=== PATIENT | female | born 1965 | race Caucasian/White ===

== ENCOUNTER 2018-08-27 00:55 | Inpatient (IN) | payer SELFPAY ==
[~2018-08-27] VITALS: Ht 167.6 cm; Wt 67.1 kg
[2018-08-27] VITALS (63 sets, daily range): BP systolic 92–154; BP diastolic 57–98
[2018-08-27] MEDS ORDERED: ONDANSETRON HCL 4MG/2ML INJ IV STA (00:58)
[2018-08-27] MEDS ORDERED: SODIUM CHLORIDE 0.9% 1,000 ML IV ONE (00:58)
[2018-08-27] MEDS ORDERED: SUCCINYLCHOLINE CHLORIDE 200MG/10ML IV ONE ×2 (01:00→14:50)
[2018-08-27] MEDS ORDERED: ETOMIDATE 2MG/ML 10ML VIAL IV ONE ×2 (01:00→14:50)
[2018-08-27] MEDS ORDERED: PROPOFOL 10MG/ML 100ML 100 ML IV ONE (01:00)
[2018-08-27 01:29] LABS: BG CARBOXYHEMOGLOBIN 1.3 % (0.5-1.5); BG DEOXYHEMOGLOBIN 0.9 % (0.0-5.0); BG FRACTION INSPIRED OXYGEN 40; BG HCO3 ACT 25.6 mmol/L (22.0-26.0); BG METHEMOGLOBIN 0.4 % (0.0-1.5); BG OXYGEN SATURATION 99.1 % (92.0-98.5); BG OXYHEMOGLOBIN 97.4 % (94.0-97.0); BG PCO2 49.7 mmHg (35.0-45.0); BG PH 7.329 (7.350-7.450); BG PO2 239.4 mmHg (75.0-100.0); BG SAMPLE SITE RIGHT BRACHIAL; BG TIDAL VOLUME(mL) 500 mL; BG TOTAL HEMOGLOBIN 14.4 g/dL (12.0-18.0); BG VENT MODE VENT - A/C; BG VENT RATE 14 set
[2018-08-27] MEDS ORDERED: PROPOFOL 10MG/ML 100ML 100 ML IV PRN (01:45)
[2018-08-27] MEDS ORDERED: MIDAZOLAM HCL 50 MG in DEXTROSE 5% WATER 40 ML IV ONE (02:30)
[2018-08-27 02:35] LABS: CHLORIDE 109 mEq/L (98-107)
[2018-08-27 02:36] LABS: BASOPHILS % 0.8 % (0.0-2.0); EOSINOPHILS % 3.1 % (0.0-5.0); HEMATOCRIT. 41.2 % (36.0-48.0); HEMOGLOBIN. 13.8 g/dL (12.0-16.0); LYMPHOCYTES % 51.5 % (20.0-50.0); MEAN PLATELET VOLUME 7.1 fl (7.4-10.4); NEUTROPHILS % 34.6 % (40.0-76.0); PLATELET 257 x1000/uL (130-400); RED BLOOD CELL COUNT 4.43 mill/uL (4.2-5.4); RED CELL DISTRIBUTION WIDTH 12.7 % (11.6-14.6)
[2018-08-27 02:40] LABS: PROTHROMBIN TIME 10.3 sec (9.1-11.1)
[2018-08-27 02:45] LABS: ETHANOL BLOOD 211 mg/dL
[2018-08-27 02:47] LABS: CLARITY URINE CLEAR (CLEAR); COLOR URINE YELLOW (YELLOW); KETONES URINE NEGATIVE (NEGATIVE); LEUKOCYTE ESTERASE URINE NEGATIVE (NEGATIVE); NITRITE URINE NEGATIVE (NEGATIVE); OCCULT BLOOD URINE NEGATIVE (NEGATIVE); PROTEIN URINE NEGATIVE (NEGATIVE); SPECIFIC GRAVITY URINE 1.004 (1.005-1.030); UROBILINOGEN URINE 0.2 E.U./dL (0.2-1.0)
[2018-08-27 03:26] LABS: *AMPHETAMINES SCREEN URINE PRESUMTIVE POSITIVE (NEGATIVE); *BARBITURATES SCREEN URINE NEGATIVE (NEGATIVE); *BENZODIAZEPINES SCREEN URINE NEGATIVE (NEGATIVE); *COCAINE SCREEN URINE NEGATIVE (NEGATIVE)
[2018-08-27 03:27] LABS: CANNABINOID URINE SCREEN NEGATIVE (NEGATIVE); METHADONE URINE SCREEN NEGATIVE (NEGATIVE); OPIATES URINE SCREEN NEGATIVE (NEGATIVE); PHENCYCLIDINE URINE SCREEN NEGATIVE (NEGATIVE)
[2018-08-27] MEDS ORDERED: DOCUSATE SODIUM 100MG CAPSULE PO PRN (09:30)
[2018-08-27] MEDS ORDERED: NITROGLYCERIN 0.4MG TABLET SL SL PRN (09:30)
[2018-08-27] MEDS ORDERED: GUAIFENESIN 200MG/10ML SUGAR FREE UDC PO PRN (09:30)
[2018-08-27] MEDS ORDERED: IPRATROPIUM/ALBUTEROL 0.5-3(2.5)MG/3ML NEB INH PRN (09:30)
[2018-08-27] MEDS ORDERED: MAGNESIUM/ALUMINUM HYDROXIDE/SIMETHICONE 30ML UDC PO PRN (09:30)
[2018-08-27] MEDS ORDERED: DIPHENHYDRAMINE 50MG/ML VIAL IV PRN (09:30)
[2018-08-27] MEDS ORDERED: NA PHOS,M-B/NA PHOS,DI-BA ENEMA 118ML PR PRN (09:30)
[2018-08-27] MEDS ORDERED: ONDANSETRON HCL 4MG/2ML INJ IV PRN (09:30)
[2018-08-27] MEDS ORDERED: CLONIDINE 0.1MG TABLET PO PRN (09:30)
[2018-08-27] MEDS ORDERED: ACETAMINOPHEN 325MG TABLET PO PRN (09:30)
[2018-08-27] MEDS ORDERED: PIPERACILLIN/TAZ 3.375G PREMIX 50 ML IV SCH (10:00)
[2018-08-27] MEDS ORDERED: VANCOMYCIN 1250MG in DEXTROSE 5% WATER 250ML IV SCH (10:30)
[2018-08-27 11:08] LABS: BG BASE EXCESS -5.2 mmol/L (-2.0-2.0); BG CARBOXYHEMOGLOBIN 0.5 % (0.5-1.5); BG DEOXYHEMOGLOBIN 1.1 % (0.0-5.0); BG FRACTION INSPIRED OXYGEN 50; BG HCO3 ACT 20.1 mmol/L (22.0-26.0); BG METHEMOGLOBIN 0.3 % (0.0-1.5); BG OXYGEN SATURATION 98.9 % (92.0-98.5); BG OXYHEMOGLOBIN 98.1 % (94.0-97.0); BG PCO2 38.4 mmHg (35.0-45.0); BG PH 7.337 (7.350-7.450); BG PO2 175.9 mmHg (75.0-100.0); BG SAMPLE SITE RIGHT BRACHIAL; BG TIDAL VOLUME(mL) 500 mL; BG TOTAL HEMOGLOBIN 13.6 g/dL (12.0-18.0); BG VENT MODE VENT - A/C; BG VENT RATE 14 set
[2018-08-27] MEDS: PROPOFOL 10MG/ML 100ML 100 ML IV PRN ×3 (11:12→20:17)
[2018-08-27] MEDS: ENOXAPARIN 40MG/0.4ML SYR SUBCUT SCH (11:21)
[2018-08-27] MEDS: DEXT 5%/0.45% NACL 1000ML 1,000 ML IV SCH ×2 (11:21→19:50)
[2018-08-27] MEDS: PANTOPRAZOLE SODIUM 40 MG/VIAL IV SCH (11:22)
[2018-08-27] MEDS: MIDAZOLAM HCL 50 MG in DEXTROSE 5% WATER 40 ML IV PRN ×2 (11:25→19:49)
[2018-08-27] MEDS: IPRATROPIUM/ALBUTEROL 0.5-3(2.5)MG/3ML NEB HHN SCH ×2 (15:45→20:06)
[2018-08-27 16:55] LABS: CREATINE KINASE 192 IU/L (26-192)
[2018-08-27 16:56] LABS: CREATINE KINASE MB FRACTION 5.3 ng/mL (0.5-3.6)
[2018-08-27] MEDS: PIPERACILLIN/TAZ 3.375G PREMIX 50 ML IV SCH (20:20)
[2018-08-27] MEDS: VANCOMYCIN 1 G PREMIX 200 ML IV SCH (20:21)
[2018-08-27] MEDS ORDERED: NOREPINEPHRINE 4 MG in DEXT 5% WATER 246 ML IV PRN (20:30)
[2018-08-28] VITALS (49 sets, daily range): BP systolic 100–147; BP diastolic 58–91
[2018-08-28] MEDS: MIDAZOLAM HCL 50 MG in DEXTROSE 5% WATER 40 ML IV PRN ×2 (00:11→04:16)
[2018-08-28] MEDS: PROPOFOL 10MG/ML 100ML 100 ML IV PRN ×2 (00:15→05:51)
[2018-08-28] MEDS ORDERED: LORAZEPAM 2MG/ML CPJ IV PRN (00:15)
[2018-08-28] MEDS: IPRATROPIUM/ALBUTEROL 0.5-3(2.5)MG/3ML NEB HHN SCH ×7 (00:25→23:52)
[2018-08-28 02:00] LABS: CREATINE KINASE 1103 IU/L (26-192)
[2018-08-28] MEDS: PIPERACILLIN/TAZ 3.375G PREMIX 50 ML IV SCH ×3 (03:43→21:39)
[2018-08-28] MEDS: DEXT 5%/0.45% NACL 1000ML 1,000 ML IV SCH (05:30)
[2018-08-28] MEDS: PANTOPRAZOLE SODIUM 40 MG/VIAL IV SCH (09:00)
[2018-08-28] MEDS: VANCOMYCIN 1 G PREMIX 200 ML IV SCH ×2 (09:00→21:39)
[2018-08-28] MEDS: ENOXAPARIN 40MG/0.4ML SYR SUBCUT SCH (09:00)
[2018-08-28 10:20] LABS: BG CARBOXYHEMOGLOBIN 0.6 % (0.5-1.5); BG DEOXYHEMOGLOBIN 1.2 % (0.0-5.0); BG FRACTION INSPIRED OXYGEN 40; BG HCO3 ACT 26.5 mmol/L (22.0-26.0); BG METHEMOGLOBIN 0.4 % (0.0-1.5); BG OXYGEN SATURATION 98.8 % (92.0-98.5); BG OXYHEMOGLOBIN 97.8 % (94.0-97.0); BG PCO2 41.1 mmHg (35.0-45.0); BG PH 7.427 (7.350-7.450); BG PO2 148.9 mmHg (75.0-100.0); BG PRESSURE SUPPORT 12; BG SAMPLE SITE RIGHT BRACHIAL; BG TIDAL VOLUME(mL) 500 mL; BG TOTAL HEMOGLOBIN 14.3 g/dL (12.0-18.0); BG VENT MODE VENT - SIMV; BG VENT RATE 10 set
[2018-08-28 12:10] LABS: BG BASE EXCESS 2.5 mmol/L (-2.0-2.0); BG DEOXYHEMOGLOBIN 1.2 % (0.0-5.0); BG FRACTION INSPIRED OXYGEN 40; BG HCO3 ACT 27.3 mmol/L (22.0-26.0); BG METHEMOGLOBIN 0.4 % (0.0-1.5); BG OXYGEN SATURATION 98.8 % (92.0-98.5); BG OXYHEMOGLOBIN 97.4 % (94.0-97.0); BG PCO2 42.4 mmHg (35.0-45.0); BG PH 7.426 (7.350-7.450); BG PO2 143.5 mmHg (75.0-100.0); BG PRESSURE SUPPORT 8; BG SAMPLE SITE RIGHT RADIAL; BG TOTAL HEMOGLOBIN 14.5 g/dL (12.0-18.0); BG VENT MODE VENT - CPAP
[2018-08-28] MEDS: NEOMY SULF/BACITRAC ZN/POLY OINT 28GM TOP SCH (12:33)
[2018-08-29] VITALS (22 sets, daily range): BP systolic 87–123; BP diastolic 37–70
[2018-08-29] MEDS: DEXT 5%/0.45% NACL 1000ML 1,000 ML IV SCH ×4 (01:30→23:38)
[2018-08-29] MEDS: PIPERACILLIN/TAZ 3.375G PREMIX 50 ML IV SCH ×3 (03:31→23:06)
[2018-08-29] MEDS: IPRATROPIUM/ALBUTEROL 0.5-3(2.5)MG/3ML NEB HHN SCH ×5 (04:13→20:02)
[2018-08-29 05:35] LABS: BASOPHILS % 0.4 % (0.0-2.0); EOSINOPHILS % 1.6 % (0.0-5.0); HEMATOCRIT. 38.5 % (36.0-48.0); HEMOGLOBIN. 13.4 g/dL (12.0-16.0); LYMPHOCYTES % 33.9 % (20.0-50.0); MEAN CORPUSCULAR HEMOGLOBIN 31.9 pg (28.0-32.0); MEAN CORPUSCULAR VOLUME 91.7 fL (81.0-99.0); MEAN PLATELET VOLUME 7.1 fl (7.4-10.4); MONOCYTES % 8.8 % (2.0-8.0); NEUTROPHILS % 55.3 % (40.0-76.0); PLATELET 219 x1000/uL (130-400); RED CELL DISTRIBUTION WIDTH 12.4 % (11.6-14.6)
[2018-08-29 05:39] LABS: CHLORIDE 107 mEq/L (98-107)
[2018-08-29] MEDS: VANCOMYCIN 1 G PREMIX 200 ML IV SCH (09:15)
[2018-08-29] MEDS: PANTOPRAZOLE SODIUM 40 MG/VIAL IV SCH (09:16)
[2018-08-29] MEDS: NEOMY SULF/BACITRAC ZN/POLY OINT 28GM TOP SCH (09:16)
[2018-08-29] MEDS: ENOXAPARIN 40MG/0.4ML SYR SUBCUT SCH (09:16)
[2018-08-29] MEDS ORDERED: POTASSIUM CHLORIDE INJ 40 MEQ in DEXT 5% WATER 500 ML IV ONE (12:15)
[2018-08-29] MEDS ORDERED: POTASSIUM CHLORIDE 20MEQ/PACKET PO NR ×2 (12:30→14:00)
[2018-08-29] MEDS: VANCOMYCIN 1250MG in DEXTROSE 5% WATER 250ML IV SCH (17:47)
[2018-08-30] VITALS: BP 98/51
[2018-08-30] MEDS: IPRATROPIUM/ALBUTEROL 0.5-3(2.5)MG/3ML NEB HHN SCH ×3 (00:30→12:42)
[2018-08-30 04:00] VITALS: BP 99/62
[2018-08-30] MEDS: PIPERACILLIN/TAZ 3.375G PREMIX 50 ML IV SCH (06:02)
[2018-08-30] MEDS: VANCOMYCIN 1250MG in DEXTROSE 5% WATER 250ML IV SCH (06:02)
[2018-08-30 08:05] VITALS: BP 85/52
[2018-08-30] MEDS: ENOXAPARIN 40MG/0.4ML SYR SUBCUT SCH (08:40)
[2018-08-30] MEDS: PANTOPRAZOLE SODIUM 40 MG/VIAL IV SCH (08:40)
[2018-08-30] MEDS: NEOMY SULF/BACITRAC ZN/POLY OINT 28GM TOP SCH (08:43)
[2018-08-30 12:00] VITALS: BP 112/72
[2018-08-30 14:54] VITALS: BP 85/52
== END 2018-08-30 15:30 | disposition home or self-care (01) | DRG 812 ==
LOC: ER 00:55 → CVICU 04:49 → EDBD 04:49 → EDBEDREQTM 04:52 → EDBEDREQ 04:52 → ENRESERV 07:03 → CVICU 08-28 03:13 → 6EST 08-29 12:15
PROVIDERS: ADMIT Internal Medicine; ATTEND Internal Medicine
PROC: 0BH18EZ Insertion of Endotracheal Airway into Trachea, Via Natural or Artificial Opening Endoscopic (ICD-10-PCS; principal; 2018-08-27)
PROC: 5A1935Z Respiratory Ventilation, Less than 24 Consecutive Hours (ICD-10-PCS; 2018-08-27)
DX: T43.621A Poisoning by amphetamines, accidental (unintentional), initial encounter (principal); J69.0 Pneumonitis due to inhalation of food and vomit; J96.01 Acute respiratory failure with hypoxia; J96.02 Acute respiratory failure with hypercapnia; G92 Toxic encephalopathy; T51.8X1A Toxic effect of other alcohols, accidental (unintentional), initial encounter; E78.1 Pure hyperglyceridemia; E83.51 Hypocalcemia; F10.129 Alcohol abuse with intoxication, unspecified; F15.10 Other stimulant abuse, uncomplicated; F17.210 Nicotine dependence, cigarettes, uncomplicated; M71.21 Synovial cyst of popliteal space [Baker], right knee; S81.812A Laceration without foreign body, left lower leg, initial encounter; X58.XXXA Exposure to other specified factors, initial encounter; Y93.89 Activity, other specified; Y92.89 Other specified places as the place of occurrence of the external cause; Y99.8 Other external cause status; Z78.1 Physical restraint status; Z98.82 Breast implant status
CPT/HCPCS: 36415; 36600; 71045; 80048; 80061; 80202; 80305; 80307; 80329; 82375; 82550; 82553; 82805; 83036; 83605; 84478; 84484; 86850; 86900; 87070; 92610; 93005; 93306; 93970; 94002; 94003; 94640; 96361; 96374; 97162; 99291; C9113; G0482; J0330; J1650; J2060; J2250; J2405; J2543; J2704; J3370; J3490; J7030; J7060; J7620